=== PATIENT | male | born 1965 | race Caucasian/White ===

== ENCOUNTER 2018-08-03 11:37 | Emergency (ER) | payer OTHER ==
[~2018-08-03] VITALS: Ht 188 cm; Wt 127.3 kg
[~2018-08-03 11:37] MED LIST: GENTAMICIN OPTHA3 GM OU
[2018-08-03 11:39] VITALS: TEMP 99.5
[2018-08-03 11:59] LABS: BASO # 0.1 (0.0-0.2); BASO % 0.6 % (0.0-2.0); EOS # 0.1 (0.0-0.7); EOS % 0.9 % (0-4.0); GRAN # 7.6 (1.4-6.5); GRAN % 72.9 % (42.2-75.2); HEMATOCRIT 47.6 % (42.0-52.0); HEMOGLOBIN 16.1 g/dl (13.5-18.0); LYMPH % 19.5 % (20.0-51.0); MEAN CELL VOLUME 88 fl (80.0-100.0); MEAN CORPUSCULAR HEMOGLOBIN 30 pg (27.0-31.0); MEAN CORPUSCULAR HGB CONC 34 g/dl (33.0-37.0); MEAN PLATELET VOLUME 10.2 fl (7.4-10.4); MONO # 0.6 (0.1-0.6); MONO % 5.7 % (1.7-9.3); PLATELET COUNT 180 K/mm3 (130-400); REDCELL DISTRIBUTION WIDTH-CV 12.7 % (11.5-14.5)
[2018-08-03 12:03] LABS: INR 1.1 (0.8-3.0); PROTHROMBIN TIME 12.5 SECONDS (9.7-12.8)
[2018-08-03 12:10] LABS: ALBUMIN 4.1 gm/dL (3.5-5.0); BILIRUBIN,TOTAL 0.9 mg/dL (0.0-1.0); CALCIUM 9.4 mg/dL (8.4-10.2); CREATININE, serum 0.95 (0.66-1.25); POTASSIUM 4.3 mmol/L (3.4-5.0); TOTAL PROTEIN 7.7 gm/dL (6.4-8.2)
[2018-08-03 12:26] LABS: PROLACTIN 15.2 ng/mL (3.7-17.9)
[2018-08-03 12:32] LABS: TROPONIN-I 0.247 ng/mL (0.000-0.035)
[2018-08-03] MEDS ORDERED: PRINIVIL10 MG PO (12:38)
[2018-08-03 14:49] LABS: MAGNESIUM 1.9 mg/dL (1.6-2.3)
[2018-08-03 15:07] LABS: TROPONIN-I 0.268 ng/mL (0.000-0.035)
[2018-08-03 15:30] VITALS: BP 128/101; PULSE 85
== END 2018-08-03 15:55 | disposition short-term general hospital (02) ==
LOC: COL.ER 11:37
PROVIDERS: Family Medicine
DX: I21.4 Non-ST elevation (NSTEMI) myocardial infarction (principal); R55 Syncope and collapse; I10 Essential (primary) hypertension; Y92.009 Unspecified place in unspecified non-institutional (private) residence as the place of occurrence of the external cause

== ENCOUNTER 2021-08-21 08:36 | Emergency (ER) | payer BC ==
[~2021-08-21] VITALS: Ht 188 cm; Wt 125.0 kg
[~2021-08-21 08:36] MED LIST changes: +PRINIVIL10 MG PO
[2021-08-21 08:50] VITALS: TEMP 97.7
[2021-08-21 09:08] LABS: BASO # 0.1 K/mm3 (0.0-0.2); BASO % 0.5 % (0.0-2.0); EOS % 0.2 % (0.0-4.0); GRAN # 9.3 K/mm3 (1.4-6.5); GRAN % 86.6 % (42.2-75.2); HEMATOCRIT 43.1 % (42.0-52.0); HEMOGLOBIN 14.6 g/dl (13.5-18.0); LYMPH # 0.9 K/mm3 (1.2-3.4); LYMPH % 8.6 % (20.0-51.0); MEAN CELL VOLUME 88 fl (80.0-100.0); MEAN CORPUSCULAR HEMOGLOBIN 30 pg (27-31); MEAN CORPUSCULAR HGB CONC 34 g/dl (33.0-37.0); MEAN PLATELET VOLUME 10.2 fl (7.4-10.4); MONO # 0.4 K/mm3 (0.1-0.6); MONO % 3.5 % (1.7-9.3); PLATELET COUNT 232 K/mm3 (130-400); RED BLOOD COUNT 4.92 M/mm3 (4.20-5.60); REDCELL DISTRIBUTION WIDTH-CV 12.2 % (11.5-14.5)
[2021-08-21 09:15] LABS: INR 1.2 (0.8-3.0); PROTHROMBIN TIME 13.8 SECONDS (9.7-12.8)
[2021-08-21 09:18] LABS: PARTIAL THROMBOPLASTIN TIME 33.6 SECONDS (26.0-37.0)
[2021-08-21 09:30] LABS: ALBUMIN 4.1 gm/dL (3.5-5.0); BILIRUBIN,TOTAL 0.6 mg/dL (0.2-1.2); CREATININE, serum 1.52 mg/dL (0.72-1.25); POTASSIUM 4.3 mmol/L (3.5-4.5); TOTAL PROTEIN 7.2 gm/dL (6.2-8.1)
[2021-08-21 10:51] LABS: MUCOUS Present (NOT PRESENT); PH 5 (5-8); SQUAMOUS EPITHELIAL None Seen /hpf (0-10); URINE APPEARANCE Clear (CLEAR/HAZY); URINE BACTERIA None Seen /hpf (NONE SEEN); URINE BILIRUBIN Negative (NEGATIVE); URINE BLOOD 2+ (NEGATIVE); URINE COLOR Yellow (YELLOW); URINE GLUCOSE 2+ (NEGATIVE); URINE KETONE Negative (NEGATIVE); URINE LEUKOCYTE ESTERASE Negative (NEGATIVE); URINE NITRATE Negative (NEGATIVE); URINE PROTEIN(semi-quant) Negative (NEGATIVE); URINE UROBILINOGEN Negative (NEGATIVE); URINE WBC 0-2 /hpf (0-2)
[2021-08-21] MEDS ORDERED: PERCOCET 325 MG1 TA2 PO (11:01)
[2021-08-21] MEDS ORDERED: ZOFRAN 4MG T4 MG/TAB PO (11:01)
[2021-08-21 11:26] LABS: COLLECTION METHOD CLEAN CATCH
[2021-08-21 18:13] VITALS: BP 162/95; PULSE 75
== END 2021-08-21 11:28 | disposition home or self-care (01) ==
LOC: COL.ER 08:36
PROVIDERS: Emergency Medicine
DX: N20.2 Calculus of kidney with calculus of ureter (principal); R73.9 Hyperglycemia, unspecified
CPT/HCPCS: J1885; J2270; J2405; J7120; Q9967

== ENCOUNTER 2021-10-17 09:02 | Emergency (ER) | payer OTHER ==
[~2021-10-17] VITALS: Ht 188 cm; Wt 127.3 kg
[~2021-10-17 09:02] MED LIST changes: +PERCOCET 325 MG1 TA2 PO; +ZOFRAN 4MG T4 MG/TAB PO
[2021-10-17 09:06] VITALS: BP 127/92; TEMP 97.7
[2021-10-17 10:04] LABS: BASO # 0.1 K/mm3 (0.0-0.2); BASO % 0.9 % (0.0-2.0); EOS # 0.2 K/mm3 (0.0-0.7); EOS % 2.6 % (0.0-4.0); GRAN # 6.2 K/mm3 (1.4-6.5); GRAN % 67.4 % (42.2-75.2); HEMATOCRIT 43.4 % (42.0-52.0); HEMOGLOBIN 14.9 g/dl (13.5-18.0); LYMPH % 21.9 % (20.0-51.0); MEAN CELL VOLUME 87 fl (80.0-100.0); MEAN CORPUSCULAR HEMOGLOBIN 30 pg (27-31); MEAN CORPUSCULAR HGB CONC 34 g/dl (33.0-37.0); MEAN PLATELET VOLUME 10.2 fl (7.4-10.4); MONO # 0.6 K/mm3 (0.1-0.6); MONO % 6.7 % (1.7-9.3); PLATELET COUNT 269 K/mm3 (130-400); RED BLOOD COUNT 4.98 M/mm3 (4.20-5.60); REDCELL DISTRIBUTION WIDTH-CV 12.6 % (11.5-14.5)
[2021-10-17 10:39] LABS: BILIRUBIN,TOTAL 0.8 mg/dL (0.2-1.2); C-REACTIVE PROTEIN 0.32 mg/dL (0.00-0.50); CALCIUM 9.5 mg/dL (8.4-10.2); CREATININE, serum 1.02 mg/dL (0.72-1.25); POTASSIUM 4.3 mmol/L (3.5-4.5); TOTAL PROTEIN 7.8 gm/dL (6.2-8.1)
[2021-10-17] MEDS ORDERED: NORCO 325 MG-51 TAB PO (11:05)
[2021-10-17] MEDS ORDERED: FLEXERIL 1010 MG/TAB PO (11:05)
[2021-10-17 11:22] VITALS: PULSE 72
[2021-10-17] MEDS ORDERED: GLUCOPHAGE500 MG/TAB PO (11:32)
[2021-10-17] MEDS ORDERED: ELIQUIS 5MG PO (11:32)
== END 2021-10-17 11:24 | disposition home or self-care (01) ==
LOC: COL.ER 09:02
PROVIDERS: Family Medicine
DX: M62.830 Muscle spasm of back (principal); R55 Syncope and collapse; Z86.711 Personal history of pulmonary embolism; Z79.01 Long term (current) use of anticoagulants
CPT/HCPCS: Q9967